=== PATIENT | male | born 1990 | race Caucasian/White ===

== ENCOUNTER 2017-01-26 05:56 | Day surgery (SDC) | payer OTHER ==
[2017-01-20 14:34] VITALS: BP 145/78
[~2017-01-26] VITALS: Ht 185.4 cm; Wt 100.0 kg
[~2017-01-26 05:56] MED LIST: CYCL-259 PO; HYDR-3240 PO; MAGN2400 PO; MELO-190 PO; MUPI22OI2 NAS; ONDA4TAB10 PO; OXYC-302 PO; OXYC5TAB2 PO
[2017-01-26] MEDS ORDERED: VANCOMYCIN 1,000 MG ONE (06:32)
[2017-01-26] MEDS ORDERED: BUPIVACAINE/PF 0.25% ONE (06:33)
[2017-01-26] MEDS ORDERED: LIDOCAINE 0.5%-EPI 1:200K, 50ML ONE (06:33)
[2017-01-26] MEDS ORDERED: THROMBIN 5,000 UNIT VIAL TP ONE ×2 (06:34→06:43)
[2017-01-26] MEDS ORDERED: LIDOCAINE 1%, 2ML ONE (06:54)
[2017-01-26] MEDS ORDERED: LACTATED RINGERS 1,000 ML IV SCH (07:08)
[2017-01-26 07:10] VITALS: BP 145/78
[2017-01-26] MEDS ORDERED: MIDAZOLAM 1 MG/ML, 2ML ONE (07:12)
[2017-01-26] MEDS ORDERED: FENTANYL PF 250 MCG/5ML ONE (07:12)
[2017-01-26] MEDS ORDERED: LIDOCAINE 1%, 2ML SQ PRN (07:30)
[2017-01-26] MEDS ORDERED: GLYCOPYRROLATE 0.2MG/1ML ONE (07:40)
[2017-01-26] MEDS ORDERED: ROCURONIUM 10 MG/ML ONE (07:40)
[2017-01-26] MEDS ORDERED: NEOSTIGMINE 1 MG/ML, 10ML ONE (07:40)
[2017-01-26] MEDS ORDERED: PROPOFOL 10 MG/ML, 20ML ONE (07:40)
[2017-01-26] MEDS ORDERED: KETOROLAC 30 MG/1 ML ONE (07:40)
[2017-01-26] MEDS ORDERED: CEFAZOLIN 1,000 MG ONE (07:40)
[2017-01-26] MEDS ORDERED: ONDANSETRON 2MG/ML, 2ML ONE (07:40)
[2017-01-26] MEDS ORDERED: DEXAMETHASONE 4 MG/ML, 1ML ONE (07:40)
[2017-01-26] MEDS ORDERED: MIDAZOLAM 1 MG/ML, 2ML IV PRN (08:30)
[2017-01-26] MEDS ORDERED: HYDROcodone/APAP 7.5-325MG/15ML UDC PO PRN (08:30)
[2017-01-26] MEDS ORDERED: ACETAMINOPHEN 325 MG TABLET PO PRN (08:30)
[2017-01-26] MEDS ORDERED: PROMETHAZINE 25 MG/ML, 1ML IV PRN (08:30)
[2017-01-26] MEDS ORDERED: ONDANSETRON 2MG/ML, 2ML IVPush PRN (08:30)
[2017-01-26] MEDS ORDERED: OXYcodone 5 MG/5 ML ORAL.SOL UDC PO PRN (08:30)
[2017-01-26] MEDS ORDERED: MEPERIDINE/PF 25MG/0.5ML IVPush PRN (08:30)
[2017-01-26] MEDS ORDERED: FENTANYL PF 100 MCG/2ML ONE (09:49)
[2017-01-26] MEDS ORDERED: OXYcodone 5 MG/5 ML ORAL.SOL UDC ONE (09:49)
[2017-01-26] MEDS: FENTANYL PF 100 MCG/2ML IV PRN ×2 (09:50→09:57)
[2017-01-26] MEDS ORDERED: HYDROmorphone 2 MG/ML, 1ML ONE (09:58)
[2017-01-26] MEDS: HYDROmorphone 1 MG/ML, 1ML IV PRN ×3 (10:00→10:23)
[2017-01-26] MEDS: DIAZEPAM 5 MG/ML, 2ML IV PRN ×2 (10:13→10:22)
[2017-01-26] MEDS ORDERED: OXYcodone/APAP 10/325MG TABLET ONE (12:04)
[2017-01-26] MEDS ORDERED: OXYcodone/APAP 10/325MG TABLET PO ONE (12:30)
== END 2017-01-26 12:45 | disposition home or self-care (01) ==
LOC: OR 05:56
PROVIDERS: ATTEND Orthopaedic Surgery Orthopaedic Surgery of the Spine
DX: M48.06 Spinal stenosis, lumbar region (principal)
CPT/HCPCS: 63030; 72100; J0690; J1100; J1170; J1885; J2250; J2405; J2704; J2710; J3010; J3360; J3370; J3490; J7120